=== PATIENT | female | born 1970 | race Caucasian/White ===

== ENCOUNTER → 2017-10-12 | Day surgery (SDC) | payer OTHER ==
[~2017-10-12] VITALS: Ht 165.1 cm; Wt 74.8 kg
[~2017-10-12] MED LIST: CYCLOBENZAPRINE10 M1 PO; PROAIR HFA8.5 GM INH; WAL-PROFEN200 M1 PO
--- NOTE | 2017-10-12 08:27 | History & Physical Pre-Op ---
General Information and HPI History of Present Illness: Tiara is a 47-year-old female with a long-standing and worsening complaint of pain to both her left and right heels. The patient has undergone an extended course of conservative care, including shoe gear and activity modification, rest , immobilization and courses of NSAIDs. None of this is yielded her any definitive relief. The patient presents today for preoperative surgical consultation. The patient was referred to our office from Mart Fung DPM. Allergies/Medications Allergies: Coded Allergies: No Known Allergies (10/08/17) Home Med list Albuterol Sulfate (Proair Hfa) 90 MCG HFA.AER.AD 1 PUF INH TID ASTHMA ( Reported) Cyclobenzaprine HCl 10 MG TABLET 1 TAB PO PRN MUSCLE SPASMS (Reported) Ibuprofen (Wal-Profen) 200 MG CAPSULE 3 CAP PO PRN PAIN/INFLAMMATION ( Reported) Past History Medical History Respiratory: asthma Surgical History Pertinent Surgical History: spinal fusion Review of Systems Review of Systems: Unremarkable except for that noted in history present illness Exam & Diagnostic Data Physical Exam: Lungs clear bilaterally. Heart sounds rate and rhythm regular. Lower extremity physical exam demonstrates intact pedal pulses bilaterally. Both dorsalis pedis and posterior tibial arteries are palpable bilaterally. Patient without any sensory motor deficits. Deep tendon reflexes grossly intact. Patient noted to have same and pain with palpation to the plantar medial aspect the left and right heels. Negative Tinel sign noted with percussion the posterior tibial nerve. Ankle range of motion noted to be diminished, especially in dorsiflexion. Assessment/Plan Assessment/Plan: Plantar fasciitis left and right foot. A lengthy discussion reviewing both surgical and conservative options was held the patient at bedside and the patient elects to go forward with surgery despite the risks. As Ranked By This Provider Problem List: 1. Plantar fascial fibromatosis Attending MD Review Statement Attending Statement Attending MD Statement: examined this patient
--- NOTE | 2017-10-12 09:52 | Operative Report ---
Operative/Inv Procedure Report Surgery Date: 10/12/17 Name of Procedure: 1 gastrocnemius recession right 2 gastrocnemius recession left 3 open plantar fasciotomy right 4 open plantar fasciotomy left 5 intraoperative administration of ankle block anesthesia Pre-Operative Diagnosis: 1 gastrocnemius equinus right 2 gastrocnemius equinus left 3 plantar fasciitis right 4 fasciitis left Post-Operative Diagnosis: The same Estimated Blood Loss: less than 50ml Surgeon/Plastics Supervisor: Hosea QUINONES,Brien Fung DPM Anesthesia: moderate sedation, block Operative/Procedure Note Note: After obtaining informed consent the patient was brought to the operating room and placed on the operating table in the supine position. The patient was then securely fastened to the operating table utilizing safety belt. After administration of IV sedation, 10 mL of 0.5% Marcaine plain was infiltrated about the patient's left and right ankles. 2 well-padded calf tourniquets were placed about the patient's left and right upper extremity F. 2 g of Ancef were delivered intravenously times one dose. Left right lower extremity is within scrubbed prepped and draped in the usual aseptic manner. The left lower extremity was elevated to examine to limb, which point the calf tourniquet was inflated 250 mmHg. Attention directed to the distal leg, where a linear incision was made 2 finger rest distal medial have a gastrocnemius muscle. Dissection then carried down to the medial margin of the gastroc fascia. An interval was developed between the peritenon and the gastroc fascia. A gastric [place] recession was then performed. The deep tissues reapproximated 4-0 Vicryl skin is reprepped for nylon. Attention was then directed distally where a 3 cm linear incision was made at the junction the dorsal plantar skin. Dissection was then carried down to the medial margin of the plantar fascia which was released from its origin on the medial tubercle calcaneal tuberosity. The deep tissues reapproximated 3-0 Vicryl skin edges reprepped with 4-0 nylon. The incisions were dressed with Xeroform 4 x 4's Kerlix and Zeeshan wrap. The tourniquet was then deflated. Next, the right lower extremity is elevated to examine to limb, which point the calf tourniquet was inflated 250 mmHg. Attention directed distal leg, where a linear incision was made 2 finger rest distal the medial have a gastrocnemius muscle. Dissection was then carried down to the medial margin of the gastroc fascia where an interval was developed between the peritenon the fascia. Gastroc recession was then performed. The deep tissues reapproximated 4-0 Vicryl skin is reprepped for nylon. Attention was then directed to the foot where a 3 cm incision was made at the junction the dorsal plantar skin. Dissection was then carried down to the medial margin of the plantar fascia which was released from its origin the medial tubercle calcaneal tuberosity. The deep tissues reapproximated with 3-0 Vicryl and the skin is reapproximated 4-0 nylon. Incision dressed with Xeroform 4 x 4's Kerlix and Zeeshan wrap. The patient was noted tolerate both procedure and anesthesia well and the patient was transported from the operative room to recovery with vital signs stable best assess intact all digits bilateral feet. Please cc a copy of this dictation to Mart Fung DPM.
== END ==
LOC: STS 03:22
DX: M21.6X2 Other acquired deformities of left foot (principal); M21.6X1 Other acquired deformities of right foot; M72.2 Plantar fascial fibromatosis; J45.909 Unspecified asthma, uncomplicated; F17.210 Nicotine dependence, cigarettes, uncomplicated
CPT/HCPCS: 81025; J0690; J1100; J2001; J2250